=== PATIENT | male | born 1945 | race Caucasian/White ===

== ENCOUNTER → 2023-11-14 13:45 | Outpatient (REF) | payer MEDICARE, SELFPAY | LOC: CLAB 13:45 | PROVIDERS: ATTENDING PHYSICIAN Otolaryngology | DX: H60.63 Unspecified chronic otitis externa, bilateral (principal) | CPT/HCPCS: 87070; 87077; 87186 ==

== ENCOUNTER → 2025-01-03 13:00 | Outpatient (REF) | payer MEDICARE, SELFPAY | LOC: RAD 13:00 | PROVIDERS: ATTENDING PHYSICIAN Family Medicine | DX: R10.32 Left lower quadrant pain (principal); R19.8 Other specified symptoms and signs involving the digestive system and abdomen; M54.9 Dorsalgia, unspecified | CPT/HCPCS: 74177; Q9967 ==

== ENCOUNTER 2025-03-26 06:26 | Day surgery (SDC) | payer MEDICARE, SELFPAY | END 2025-03-26 12:22 | disposition home or self-care (01) | LOC: GI 06:26 | PROVIDERS: ATTENDING PHYSICIAN Internal Medicine Gastroenterology | DX: Z12.11 Encounter for screening for malignant neoplasm of colon (principal); R19.4 Change in bowel habit; K64.8 Other hemorrhoids; D12.3 Benign neoplasm of transverse colon; K57.30 Diverticulosis of large intestine without perforation or abscess without bleeding; Z86.0100 Personal history of colon polyps, unspecified | CPT/HCPCS: 45385; 45380; 88305 ==